=== PATIENT | female | born 1965 | race Caucasian/White ===

== ENCOUNTER 2022-05-31 02:43 | Inpatient (IN) | payer BC ==
[2022-05-31] VITALS (14 sets, daily range): BP systolic 37–175; BP diastolic 53–110
[~2022-05-31] VITALS: Ht 166.4 cm; Wt 102.1 kg
--- NOTE | 2022-05-31 02:00 | NUR ---
Spoke with Dr Peres, Pt is to be transfered to telemetry. And obtain orders to discontinue Narcan.
[2022-05-31] MEDS ORDERED: MISCELLANEOUS MED XX ONE (03:00)
[2022-05-31] MEDS ORDERED: NALOXONE 2 MG/2 ML SYRINGE ONE (03:02)
[2022-05-31] MEDS ORDERED: ONDANSETRON 4 MG/2 ML VIAL ONE (03:26)
[2022-05-31] MEDS ORDERED: ONDANSETRON 4 MG/2 ML VIAL IV ONE (03:30)
[2022-05-31 03:31] LABS: HEMATOCRIT 45.8 % (31.2-41.9); MEAN CORPUSCULAR HEMOGLOBIN 28.8 uug (24.7-32.8); MEAN CORPUSCULAR VOLUME 88.7 fL (75.5-95.3); PLATELET COUNT (AUTO) 362 K/uL (179-408)
[2022-05-31 03:40] LABS: ALANINE AMINOTRANSFERASE 142 U/L (14-59); ALKALINE PHOSPHATASE 69 U/L (50-136); ASPARTATE AMINOTRANSFERASE 115 U/L (15-37); BILIRUBIN,DIRECT 0.1 mg/dL (0.0-0.2); BILIRUBIN,TOTAL 0.2 mg/dL (0.2-1.0); CARBON DIOXIDE 27 mmol/L (21-32); CHLORIDE 101 mmol/L (98-107); CREATININE 1.2 mg/dL (0.6-1.3); POTASSIUM 4.4 mmol/L (3.5-5.1); TOTAL PROTEIN, SERUM 7.9 g/dL (6.4-8.2); UREA NITROGEN, BLOOD 25 mg/dL (7-18)
[2022-05-31] MEDS ORDERED: ENOXAPARIN SODIUM 100 MG/ML DISP.SYRIN SQ ONE ×2 (03:45→04:46)
[2022-05-31 03:54] LABS: ETHANOL < 3 MG/DL (0-0)
[2022-05-31 04:02] LABS: ACETAMINOPHEN < 2.0 ug/mL (10-30); GLUCOSE 435 mg/dL (74-106)
--- NOTE | 2022-05-31 04:08 | NUR ---
Called [facility] to page Tj Louis NP.
--- NOTE | 2022-05-31 04:13 | NUR ---
Dr. Hughes on panel call with Tj Louis NP.
[2022-05-31] MEDS ORDERED: INSULIN REGULAR, HUMAN 300 UNIT/3 ML VIAL IV ONE (04:15)
[2022-05-31] MEDS ORDERED: MAGNESIUM HYDROXIDE 30 ML LIQUID UDC PO PRN (04:15)
[2022-05-31] MEDS ORDERED: DEXTROSE 50% 50 ML DISP.SYRIN IV PRN (04:15)
[2022-05-31] MEDS ORDERED: ONDANSETRON 4 MG/2 ML VIAL IV PRN (04:15)
[2022-05-31 04:19] LABS: *BILIRUBIN,URIN NEGATIVE (NEGATIVE); *BLOOD, URINE NEGATIVE (NEGATIVE); *CLARITY,URINE CLEAR (CLEAR); *COLOR,URINE YELLOW (YELLOW); *KETONES,URINE NEGATIVE (NEGATIVE); *UROBILINOGEN,URINE 0.2 E.U./dl (NORMAL); LEUKOCYTE ESTERASE ,URINE NEGATIVE (NEGATIVE); NITRITE, URINE NEGATIVE (NEGATIVE); UGLUCOSE 2+ (NEGATIVE)
[2022-05-31 04:34] LABS: *AMPHETAMINE, URINE NEGATIVE (NEGATIVE); *CANNABINOID, URINE NEGATIVE (NEGATIVE); *COCCAINE, URINE NEGATIVE (NEGATIVE); *OPIATE, URINE POSITIVE (NEGATIVE); *PHENCYCLIDINE SCREEN,URINE NEGATIVE (NEGATIVE)
--- NOTE | 2022-05-31 05:28 | NUR ---
Pt's partner to bring list of medications in AM, needs follow up.
[2022-05-31] MEDS ORDERED: DEXA4TAB PO (05:41)
[2022-05-31] MEDS ORDERED: ALPR0.255 PO (05:41)
[2022-05-31] MEDS ORDERED: THYR30TA2 PO (05:41)
--- NOTE | 2022-05-31 05:41 | NUR ---
Pt's partner couldn't get list of patient's medications, unable to remember doses and frequencies. Only able to give 3 medications that he can remember.
--- NOTE | 2022-05-31 06:16 | NUR ---
Pt. sleeping. VSS. Friend at bedside.
[2022-05-31] MEDS ORDERED: PANTOPRAZOLE SODIUM 40 MG TABLET.DR PO ONE (06:32)
[2022-05-31] MEDS: PANTOPRAZOLE SODIUM 40 MG TABLET.DR PO SCH (06:43)
[2022-05-31] MEDS ORDERED: NORMAL SALINE IV PRN (06:45)
[2022-05-31] MEDS ORDERED: NALOXONE HCL IV PRN (06:45)
--- NOTE | 2022-05-31 06:52 | NUR ---
Pt. stated she has been estranged from ex- for 14 years. ED not to contact or involve him in her treatment in any way. Said she thinks mechanical cad designer may have contacted him. ED has no contact infomation for ex-.
--- NOTE | 2022-05-31 07:13 | NUR ---
Pt. roommate requested that a note be put on the chart that pt. may have injured her ankle from EMT transport. As previously documented pt. has been drowsy but oriented. Room mate Omar became loud and argumentative and calling rfp writer " unprofessional" because I quoted to him what pt. said upon arrival and during her stay that she thinks she hurt her ankle home getting out of her bath tub. Pt. ambulated to bathroom to void without incident and gave urine sample. Mila ALLEN also present during interaction with pt. and room mate. Endorsed awake and alert to oncoming TIFFANY Zaragoza.
[2022-05-31] MEDS: BLOOD SUGAR DIAGNOSTIC 1 EACH STRIP VI SCH ×4 (08:23→21:00)
[2022-05-31] MEDS: NALOXONE HCL 4 MG in IV NORMAL SALINE 246 ML IV PRN ×3 (08:30→22:01)
[2022-05-31] MEDS ORDERED: ENOXAPARIN SODIUM 40 MG/0.4 ML DISP.SYRIN SQ ONE (08:58)
[2022-05-31] MEDS: IV LACTATED RINGERS SOLUTION 1,000 ML IV PRN ×2 (09:04→10:20)
[2022-05-31] MEDS ORDERED: INSULIN REGULAR, HUMAN 300 UNIT/3 ML VIAL ONE (09:14)
[2022-05-31] MEDS: INSULIN REGULAR, HUMAN 300 UNIT/3 ML VIAL SQ PRN (10:04)
--- NOTE | 2022-05-31 10:52 | NUR ---
Pt seen by Dr Weber at this time. Patient is communicative. Kenia johnson off at this time. RR 16. Significant other at the bedside. Addendum: 05/31/22 at 1504 by [facility] RN3 RN Correction is Joann johnson
--- NOTE | 2022-05-31 14:47 | NUR ---
PT REMAINS DROWSY AND IS COMMUNICATIVE.RESP IS EVEN AND UNLABORED. BP 80/60. dR Miranda CALLED NO RESPONSE.
[2022-05-31] MEDS ORDERED: BLOOD SUGAR DIAGNOSTIC 1 EACH STRIP VI ONE (15:15)
--- NOTE | 2022-05-31 15:20 | NUR ---
pt is asleep .Desats when NRB mask slips off to 91.Dr Peresreached by nursing prepared foods supervisor. New order to cancel transfer to Tele and keep in the ICU.Pt is sedated and pupis p1 sluggish. Nursing prepared foods supervisor notified. Will continure to monitor this patient. Significant other is at the bedside.
--- NOTE | 2022-05-31 16:23 | NUR ---
Patient awaken spontaneously. Titrate snarcan drip to effect. Norcan drip at 100 cc/ghr. Alwert and oriented times three. New IV site L forearm IV site infiltrated Site d/c'd and pressure dressing applied.
[2022-05-31] MEDS ORDERED: DEXAMETHASONE 0.5 MG TABLET ONE (17:00)
[2022-05-31] MEDS: DEXAMETHASONE 0.5 MG TABLET PO SCH (17:01)
--- NOTE | 2022-05-31 17:14 | NUR ---
Dr Peres ingormed of patient's status awake. Midline inserted by Chelle Benitez RN. Patient tolerated the proceure. Narcan drip and LR infusing via same.
--- NOTE | 2022-05-31 20:00 | NUR ---
[id number]-TD CONT. TO BE A/OX4. PT ABLE TO RODRÍGUEZ EQUALLY. IV I/P VIA RIGHT ARM MIDL. PT HAS NARCON DRIP DOWN TO 0.4MG. CONTACTED AND STATED THAT THE DRIP CAN BE TITRATED OFF. PT HAS BEEN VOIDING [id number] BEEN 600CC BEATA/CLR. PT ALSO HAD LOW-GRADE TEMP OF 100.4F(AX). COOLING LANA DONE. PT C/O BLACKWELL-MED WITH TYLENOL. PT STATES RELIEF AFTER MED. IN TO EVAL PT. PT HAS BEEN ON VIA AK. PT KATHYA WELL WITH POX OF 98-99%. AM CARE GIVEN. PT CONT. WITH 1:1 STATUS FOR 5150. DOUG ALLEN
--- NOTE | 2022-05-31 21:00 | NUR ---
PT NOT COVERED FOR BS OF 134 DUE TO PT STATING SHE HAS NOT BEEN EATING MUCH TODAY-POOR APPETITE. PT ALSO WAS NPO TODAY. DOUG ALLEN
[2022-06-01] VITALS (14 sets, daily range): BP systolic 90–151; BP diastolic 50–108
[2022-06-01] MEDS: INSULIN REGULAR, HUMAN 300 UNIT/3 ML VIAL SQ PRN ×4 (00:16→17:01)
[2022-06-01] MEDS ORDERED: ACETAMINOPHEN 325 MG TABLET ONE ×2 (00:22→08:37)
[2022-06-01] MEDS: ACETAMINOPHEN 325 MG TABLET PO PRN ×2 (00:24→18:08)
[2022-06-01] MEDS: NALOXONE HCL 4 MG in IV NORMAL SALINE 246 ML IV PRN (02:56)
[2022-06-01] MEDS ORDERED: IBUPROFEN 600 MG TABLET PO PRN (05:15)
[2022-06-01 05:26] LABS: HEMATOCRIT 35.9 % (31.2-41.9); MEAN CORPUSCULAR HEMOGLOBIN 29.2 uug (24.7-32.8); MEAN CORPUSCULAR VOLUME 87.1 fL (75.5-95.3); PLATELET COUNT (AUTO) 274 K/uL (179-408)
[2022-06-01 05:28] LABS: MAGNESIUM 1.7 mg/dL (1.8-2.4); PHOSPHOROUS 3.6 mg/dL (2.5-4.9)
[2022-06-01 05:29] LABS: BILIRUBIN,TOTAL 0.7 mg/dL (0.2-1.0); CREATININE 0.8 mg/dL (0.6-1.3); POTASSIUM 3.6 mmol/L (3.5-5.1); TOTAL PROTEIN, SERUM 6.5 g/dL (6.4-8.2)
[2022-06-01] MEDS ORDERED: THYROID 60 MG TABLET PO SCH (07:00)
[2022-06-01] MEDS: BLOOD SUGAR DIAGNOSTIC 1 EACH STRIP VI SCH ×4 (07:30→21:23)
[2022-06-01] MEDS: PANTOPRAZOLE SODIUM 40 MG TABLET.DR PO SCH (07:33)
[2022-06-01] MEDS ORDERED: CEFEPIME HCL 1 G in IV DEXTROSE 5% 50 ML IV SCH (08:00)
[2022-06-01] MEDS ORDERED: INSULIN NPH 1,000 UNITS/10 ML VIAL SQ ONE (08:24)
[2022-06-01] MEDS: CEFEPIME HCL 2 G in IV DEXTROSE 5% 100 ML IV SCH ×2 (08:31→16:59)
[2022-06-01] MEDS ORDERED: ENOXAPARIN SODIUM 80 MG/0.8 ML DISP.SYRIN SQ ONE (08:34)
[2022-06-01] MEDS ORDERED: DEXAMETHASONE 0.5 MG TABLET ONE (08:34)
[2022-06-01] MEDS: DEXAMETHASONE 0.5 MG TABLET PO SCH (09:00)
[2022-06-01] MEDS: ENOXAPARIN SODIUM 40 MG/0.4 ML DISP.SYRIN SQ SCH (09:00)
--- NOTE | 2022-06-01 10:50 | NUR ---
0600-VS CONT. TO BE STABLE. PT REMAINS A/OX4. PT HAS DISPO FOR TRANSFER TO RM 305 WITH SITTER. PT INFORMED. REPORT CALLED TO TIFFANY GLORIA. PT IS AFEBRILE. IVF D/CD. HL-ML I/P. PT IS COOPERATIVE. DR. KIRKLAND IN TO EVAL PT. PT TRANSFERED WITH O2 3l/NC. PT TRANSFERED IN STABLE COND WITH 02. REPORT GIVEN TO ANGELA. GEN. COND. HAS BEEN STABLE. PT'S PARTNER RUSLAN PRESENT. PT VERB REMORSE FROM SUICIDE ATTEMPT. WOUND CONSULT ORD FORM SMALL WOUND FROM HOME FROM A FALL AT HOME. PT REMAINS ALERT AND A/OX4. GEN COND HAS BEEN STABLE. NARCAN DRIP HAS BEEN OFF SINCE 2214. DOUG ALLEN
--- NOTE | 2022-06-01 11:00 | NUR ---
RECEIVED FROM ER. A&O X3. MOVING ALL EXTS WELL. C/O WEAKNESS BLE DUE TO FALL 6 WEEKS AGO. 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
[2022-06-01] MEDS: MAGNESIUM SULFATE/D5W 100 ML IV SCH ×2 (11:28→11:31)
--- NOTE | 2022-06-01 12:00 | NUR ---
PATIENT ON 5150 HOLD FOR SI. HOLD STARTED AT 0300 ON 05/31/22. PATIENT AWARE 5150 WILL END 06/03/22 AT 0300.
[2022-06-02] MEDS: ACETAMINOPHEN 325 MG TABLET PO PRN ×2 (00:46→14:44)
[2022-06-02] MEDS: CEFEPIME HCL 2 G in IV DEXTROSE 5% 100 ML IV SCH (00:46)
[2022-06-02 04:00] VITALS: BP 138/90
[2022-06-02 05:43] LABS: HEMATOCRIT 34.9 % (31.2-41.9); MEAN CORPUSCULAR HEMOGLOBIN 29.3 uug (24.7-32.8); MEAN CORPUSCULAR VOLUME 86.7 fL (75.5-95.3); PLATELET COUNT (AUTO) 257 K/uL (179-408)
[2022-06-02 06:17] LABS: CREATININE 0.6 mg/dL (0.6-1.3); PHOSPHOROUS 3.7 mg/dL (2.5-4.9); POTASSIUM 3.8 mmol/L (3.5-5.1)
[2022-06-02] MEDS: PANTOPRAZOLE SODIUM 40 MG TABLET.DR PO SCH (07:04)
[2022-06-02] MEDS: THYROID 60 MG TABLET PO SCH (07:09)
[2022-06-02] MEDS: BLOOD SUGAR DIAGNOSTIC 1 EACH STRIP VI SCH ×4 (07:33→21:24)
--- NOTE | 2022-06-02 08:36 | NUR ---
Awake, alert, oriented x 4. BRP self care. O2 at 1.5L/NC. Denies SI. Midline RUE intact
--- NOTE | 2022-06-02 09:00 | NUR ---
Family at bedside, assisting with needs and checking for safety
[2022-06-02] MEDS: CEFEPIME HCL 1 G in IV DEXTROSE 5% 50 ML IV SCH ×2 (11:39→18:03)
[2022-06-02] MEDS: ENOXAPARIN SODIUM 40 MG/0.4 ML DISP.SYRIN SQ SCH (11:40)
[2022-06-02] MEDS: DEXAMETHASONE 0.5 MG TABLET PO SCH (11:41)
[2022-06-02] MEDS ORDERED: MIRALAX 17 GM POWD.PACK PO PRN (11:45)
[2022-06-02 12:10] VITALS: BP 141/88
--- NOTE | 2022-06-02 13:50 | NUR ---
WOUND CARE CONSULT: PT PRESENTS WITH RT KNEE WOUND, PRESENT ON ADMISSION. PT NOTED TO BE EXTREMELY VERBAL AND SPEAKING VERY FAST. SIGNIFICANT OTHER AT BEDSIDE. RECOMMENDATIONS MADE FOR WOUND CARE AND SKIN PROTECTION. DISCUSSED WITH NURSING STAFF. MD IN AGREEMENT WITH PLAN OF CARE.
--- NOTE | 2022-06-02 14:48 | NUR ---
EVAN consult requested for a patient on [facility] for mental health resources. The patient is a 57-year-old female admitted to the hospital for acute respiratory failure. Patient was placed on 5150 by [employer] for danger to self, following intentional overdose on Morphine. Patient is alert and oriented X4. Patient presents with anxious mood and congruent affect. Patient states her primary contact is her significant other, Omar Jones ([phone]), and she lives with him at [address] [address]. Patient denies history of substance abuse and states that she never uses drugs. Toxicology report is positive for opiates and EVAN provided the patient with medication assisted treatment resources from [facility] [address] [facility] [address] ([phone]), [facility] [address] [facility] [address] ([phone]), and [address] [address] ([phone]). Patient denies a history of psychiatric diagnosis. Patient states she is grieving her sons from cancer and has been seeing a therapist, Debbie Cameron, once a week for 15 years. Patient states that she does not have a psychiatrist and is not taking any medication. EVAN provided the patient with mental health resource for [facility] [address] [facility] , [facility] [address] ([phone]) and [facility] [address] [facility], 2nd floor, [facility] [address] ([phone]). Patient denies suicidal or homicidal ideation. SW provided emotional support, validation and coping strategies. Patient states that getting appropriate sleep is very important to her mental health. Patient states her discharge plan is for Omar Jones ([phone]) to take her home to [address] [address].
--- NOTE | 2022-06-02 15:00 | NUR ---
Reports of pain, Tylenol po given. Ambulating in the hallway. Spoke Renaldo, to continue hold, dairy farm supervisor informed.
[2022-06-02 16:00] VITALS: BP 136/80
--- NOTE | 2022-06-02 17:11 | NUR ---
Dr. Stafford seen patient, Hold discontinued.
[2022-06-02] MEDS: INSULIN REGULAR, HUMAN 300 UNIT/3 ML VIAL SQ PRN (18:05)
[2022-06-02] MEDS: NEOMY/BACITRAC/POLYMI OINT 28.35 GM TUBE TOP SCH (18:06)
--- NOTE | 2022-06-02 18:50 | NUR ---
Denies SI, free from injury
[2022-06-02 20:00] VITALS: BP 150/84
[2022-06-03] MEDS: CEFEPIME HCL 1 G in IV DEXTROSE 5% 50 ML IV SCH ×2 (01:05→08:56)
[2022-06-03] MEDS: ACETAMINOPHEN 325 MG TABLET PO PRN (01:23)
[2022-06-03 04:00] VITALS: BP 149/72
[2022-06-03] MEDS: THYROID 60 MG TABLET PO SCH (06:58)
[2022-06-03] MEDS: PANTOPRAZOLE SODIUM 40 MG TABLET.DR PO SCH (06:58)
[2022-06-03] MEDS: BLOOD SUGAR DIAGNOSTIC 1 EACH STRIP VI SCH ×2 (07:02→11:52)
--- NOTE | 2022-06-03 07:30 | NUR ---
Awake, not in distress. Denies pain. Room air
[2022-06-03] MEDS: DEXAMETHASONE 0.5 MG TABLET PO SCH (08:56)
[2022-06-03] MEDS: ENOXAPARIN SODIUM 40 MG/0.4 ML DISP.SYRIN SQ SCH (08:57)
[2022-06-03] MEDS: NEOMY/BACITRAC/POLYMI OINT 28.35 GM TUBE TOP SCH (08:58)
[2022-06-03] MEDS ORDERED: AMOX500C2 PO (12:57)
--- NOTE | 2022-06-03 15:25 | NUR ---
With discharge order to home. Midline removed. Denies SI. DC instruction given to patient, verbalized understanding. Went home ambulatory per request in fair condition, not in distress, afebrile.
== END 2022-06-03 15:15 | disposition home or self-care (01) | DRG 917 ==
LOC: ER 02:43 → TRANSITION 04:10 → MEDSURG3 06-01 11:04
PROVIDERS: ADMIT Internal Medicine; ATTEND Nurse Practitioner Acute Care
PROC: 05H533Z Insertion of Infusion Device into Right Subclavian Vein, Percutaneous Approach (ICD-10-PCS; principal; 2022-05-31)
PROC: B546ZZA Ultrasonography of Right Subclavian Vein, Guidance (ICD-10-PCS; 2022-05-31)
DX: T40.2X2A Poisoning by other opioids, intentional self-harm, initial encounter (principal); E11.00 Type 2 diabetes mellitus with hyperosmolarity without nonketotic hyperglycemic-hyperosmolar coma (NKHHC); J69.0 Pneumonitis due to inhalation of food and vomit; J96.01 Acute respiratory failure with hypoxia; N17.0 Acute kidney failure with tubular necrosis; E24.9 Cushing's syndrome, unspecified; E03.9 Hypothyroidism, unspecified; E66.9 Obesity, unspecified; Z87.891 Personal history of nicotine dependence; F41.9 Anxiety disorder, unspecified; F29 Unspecified psychosis not due to a substance or known physiological condition; F32.9 Major depressive disorder, single episode, unspecified; Y92.009 Unspecified place in unspecified non-institutional (private) residence as the place of occurrence of the external cause; Z20.822 Contact with and (suspected) exposure to COVID-19; Z68.36 Body mass index [BMI] 36.0-36.9, adult; F43.29 Adjustment disorder with other symptoms; F43.81 Prolonged grief disorder
CPT/HCPCS: 36415; 71045; 83735; 84100; 84443; 84481; 85025; 87040; 93005; G0378; G0480; J0692; J1650; J1815; J2310; J2405; J3475; J7120; J8540